=== PATIENT | female | born 1995 | race Caucasian/White ===

== ENCOUNTER 2021-06-26 11:57 | Outpatient (CLI) | payer OTHER | END 2021-06-26 17:31 | disposition home or self-care (01) | LOC: LAB 11:57 | PROVIDERS: ATTEND Emergency Medicine Pediatric Emergency Medicine | DX: Z03.818 Encounter for observation for suspected exposure to other biological agents ruled out (principal) ==

== ENCOUNTER 2021-06-30 10:24 | Outpatient (CLI) | payer OTHER | END 2021-06-30 15:00 | disposition home or self-care (01) | LOC: LAB 10:24 | PROVIDERS: ATTEND Emergency Medicine Pediatric Emergency Medicine | DX: Z03.818 Encounter for observation for suspected exposure to other biological agents ruled out (principal) ==